=== PATIENT | female | born 1945 | race Caucasian/White ===

== ENCOUNTER 2016-10-09 11:18 | Emergency (ER) | payer OTHER, MEDICARE ==
[~2016-10-09] VITALS: Ht 154.9 cm; Wt 55.3 kg
[2016-10-09 11:21] VITALS: BP 118/83
[2016-10-09] MEDS ORDERED: LISINOPRIL10 M1 PO (11:48)
[2016-10-09] MEDS ORDERED: PRAVASTATIN SOD40 M2 PO (11:48)
[2016-10-09] MEDS ORDERED: CARDIZEM CD240 M1 PO (11:48)
[2016-10-09] MEDS ORDERED: MULTI-DAY VITA1 EACH PO (11:49)
--- NOTE | 2016-10-09 11:55 | RADIOLOGY REPORT ---
EXAMINATION: XR WRIST, LEFT CLINICAL INFORMATION: Pain and swelling status post fall COMPARISON: None TECHNIQUE: AP, lateral, and oblique views of the left wrist. FINDINGS: The bones are osteopenic. There is a distal radial metaphyseal fracture. No significant displacement. Alignment is maintained. No definite intra-articular extension. The carpal rows are appropriately aligned. Severe degenerative changes of the first carpometacarpal joint with joint space narrowing, sclerosis, and osteophyte formation. IMPRESSION: Essentially nondisplaced distal radial metaphyseal fracture.
--- NOTE | 2016-10-09 12:02 | ED HAND/WRIST INJURY COMPLAINT ---
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 Source: patient Exam Limitations: no limitations Vital Signs & Intake/Output Vital Signs & Intake/Output Vital Signs Date Time Temp Pulse Resp B/P B/P Pulse O2 O2 Flow FiO2 Mean Ox Delivery Rate 10/09 1121 97.2 93 18 118/83 100 Room Air Allergies Coded Allergies: Penicillins (Severe, RASH, ITCHY ON NECK 10/09/16) Reconcile Medications Diltiazem HCl (Cardizem Cd) 240 MG CAP.ER.24H 1 CAP PO DAILY HEART/BP ( Reported) Lisinopril 10 MG TABLET 0.5 TAB PO DAILY BP (Reported) Multivitamin (Multi-Day Vitamins) 1 EACH TABLET 1 TAB PO DAILY SUPPLEMENT ( Reported) Pravastatin Sodium 40 MG TABLET 1 TAB PO QPM CHOLESTEROL (Reported) Tylenol With Codeine (Tylenol With Codeine #3 Tablet) 300 MG-30 MG TABLET 1 TAB PO TIDP PRN pain Triage Note: 71 Y/O FEMALE C/O L WRIST PAIN S/P FALL OFF LADDER; STATES SHE WAS 2 STEPS UP A LADDER AND LOST FOOTING; FELL ONTO L WRIST. PT DENIES STRIKING HEAD OR ANY OTHER INJURY. SWELLING AND DEFORMITY NOTED. SPLINT PLACED. PT DECLINES OFFER OF MEDS IN TRIAGE ASKING FOR XRAY FIRST. ICE IN PLACE. Triage Nurses Notes Reviewed? yes Occurred: just prior to arrival Duration: hour(s): (2), constant, continues in ED, getting worse Timing: single episode today Injury Environment: home Severity: mild, moderate Severity Numbers: 7 Pain/Injury Location: Left: Wrist. Context: fall Method of Injury: fall No Modifying Factors: none Associated Symptoms: swelling LMP (ages 10-50): post menopausal : No Patient currently breastfeeds: No HPI: 71-year-old female with a past medical history of hypertension and hyperlipidemia presents complaining of pain in her left wrist after a fall. Patient states that she was coming down a ladder when she slipped on the last 2 steps and fell on her left outstretched wrist. She denies any head injury or loss of consciousness. She reports pain in left wrist that is worse with any type of movement. She took Motrin without any improvement. She rates the pain as an 8 out of 10. She denies any numbness, tingling, headaches, blood thinners , changes in vision, nausea, vomiting or any other associated symptoms. (SOPHIE TEAGUE PA-C) Past History Travel History Traveled to [place] past 21 day No Medical History Any Pertinent Medical History? 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 No (SOPHIE TEAGUE PA-C) Review of Systems Review of Systems Constitutional: Reports: no symptoms. EENTM: Reports: no symptoms. Respiratory: Reports: no symptoms. Cardiovascular: Reports: no symptoms. GI: Reports: no symptoms. Genitourinary: Reports: no symptoms. Musculoskeletal: Reports: see HPI, joint pain, joint swelling, muscle pain. Skin: Reports: no symptoms. Neurological/Psychological: Reports: no symptoms. Hematologic/Endocrine: Reports: no symptoms. Immunologic/Allergic: Reports: no symptoms. All Other Systems: Reviewed and Negative (SOPHIE TEAGUE PA-C) Physical Exam Physical Exam General Appearance: well developed/nourished, no apparent distress, alert, awake Head: atraumatic, normal appearance Eyes: Bilateral: normal appearance, PERRL, EOMI. Ears, Nose, Throat: normal pharynx, normal ENT inspection, hearing grossly normal Neck: normal inspection, supple, full range of motion Cardiovascular/Respiratory: normal breath sounds, normal peripheral pulses, regular rate/rhythm, no respiratory distress Shoulder Left: normal range of motion, normal inspection Shoulder Right: normal range of motion, normal inspection Elbow Left: normal range of motion, normal inspection Elbow Right: normal range of motion, normal inspection Forearm Left: normal range of motion, normal inspection Forearm Right: normal range of motion, normal inspection Wrist Left: swelling, tenderness, bone tenderness, pain, soft tissue tenderness, limited range of motion, swelling and pain with palpation of the radial aspect of the wrist. no snuff box tenderness. rom of the left wrist is reduced due to pain. neurovascular supply intact Wrist Right: normal range of motion, normal inspection Hand Left: normal inspection, normal range of motion Hand Right: normal inspection, normal range of motion Reflexes: 2+: bicep (R), bicep (L). Neurologic/Tendon: normal sensation, normal motor functions, normal tendon functions, responds to pain, no evidence tendon injury, no pulse deficit Skin: intact, normal color, warm/dry Lymphatic: no anterior cervical mili (ZAHIDA NORRIS,SOPHIE) Progress Differential Diagnosis: abscess, cellulitis, contusion, compartment syndrome, dislocation, fracture, sprain, tenosynovitis Plan of Care: Orders Procedure Date/time Status Durable Medical Equipment 10/09 1220 Active X-ray showing a nondisplaced radial fracture. Neurovascular supply is intact. She denies any other injuries. Patient will be placed in a thumb spica splint. She also was given Tylenol with Codeine to use for pain. Patient will be referred to orthopedics. Advised rest ice elevation and wearing the splint she sore throat. Tylenol with Codeine as needed for pain. Reviewed all results of today's visit with patient. Patient is nontoxic-appearing agrees with the plan. I discussed with the patient at length all of their results. I had an extensive conversation regarding need for close follow up with their primary care physician this week as well as return precautions. I answered all of their questions, they feel comfortable with the plan and follow-up care. I discussed with the patient/family the medications that they will receive. I gave them signs and symptoms that could indicate an adverse reaction. I have advised them to limit their activities until they can see how they respond to the medication. (ZAHIDA NORRIS,SOPHIE) Diagnostic Imaging: Viewed by Me: Radiology Read. Discussed w/RAD: Radiology Read. Radiology Impression: PATIENT: RACHAEL LAMAS PRESENT AGE: 71 PATIENT ACCOUNT NO: [id number] : 44 LOCATION: [facility] ORDERING PHYSICIAN: MAG DORANTES MD SERVICE DATE: 10/09/16 EXAM TYPE: RAD - XRY- WRIST COMPLETE-LEFT EXAMINATION: XR WRIST, LEFT CLINICAL INFORMATION: Pain and swelling status post fall COMPARISON: None TECHNIQUE: AP, lateral, and oblique views of the left wrist. FINDINGS: The bones are osteopenic. There is a distal radial metaphyseal fracture. No significant displacement. Alignment is maintained. No definite intra-articular extension. The carpal rows are appropriately aligned. Severe degenerative changes of the first carpometacarpal joint with joint space narrowing, sclerosis, and osteophyte formation. IMPRESSION: Essentially nondisplaced distal radial metaphyseal fracture. DICTATED BY: GILBERTO ALVES MD DATE/TIME DICTATED:10/09/161150 CRAFT RECRUITER:CELIA DATE/TIME TRANSCRIBED:10/09/161150 CONFIDENTIAL, DO NOT COPY WITHOUT APPROPRIATE AUTHORIZATION. <Electronically signed in Other Vendor System> SIGNED BY: LONG GANT,GILBERTO 10/09/16 1155 (SOPHIE TEAGUE PA-C) Departure Departure Disposition: HOME OR SELF CARE Condition: Stable Clinical Impression Primary Impression: Wrist fracture, left Qualifiers: Encounter type: initial encounter Fracture type: closed Qualified Code: S62.102A - Fracture of unspecified carpal bone, left wrist, initial encounter for closed fracture Referrals: SANDEE GANT,BRIA KUNZ MD,BELL Claros (PCP/Family) Additional Instructions: Rest, avoid heavy lifting, excessive physical activity. Wear splint and apply ice. Tylenol with Codeine can be used every 4-6 hours as needed for pain. This may cause drowsiness. Make a follow-up appointment with your primary care doctor and orthopedics as soon as possible. Monitor symptoms and return to the emergency department with any concerns. Departure Forms: Customer Survey General Discharge Information Prescriptions: Current Visit Scripts Tylenol With Codeine (Tylenol With Codeine #3 Tablet) 1 TAB PO TIDP PRN pain #12 TAB (SOPHIE TEAGUE PA-C) PA/SINGLE NEEDLE TUFTING MACHINE OPERATOR Co-Sign Statement Statement: ED Attending supervision documentation- x I saw and evaluated the patient. I have also reviewed all the pertinent lab results and diagnostic results. I agree with the findings and the plan of care as documented in the PA's/SINGLE NEEDLE TUFTING MACHINE OPERATOR's documentation. [] I have reviewed the ED Record and agree with the PA's/SINGLE NEEDLE TUFTING MACHINE OPERATOR's documentation. [] Additions or exceptions (if any) to the PAs/SINGLE NEEDLE TUFTING MACHINE OPERATOR's note and plan are summarized below: [] (JOSE E GANT,MAG) Procedures Splinting Location: left wrist Manual Alignment Performed: No Pre-Made Type: velcro Splint: thumb spica Splint Applied By: splint applied by other Pre-Proc Neuro Vasc Exam: normal Post-Proc Neuro Vasc Exam: normal Progress: Consent obtained. Patient was placed in a Velcro thumb spica splint. She tolerated well without any complications. (ZAHIDA NORRIS,SOPHIE)
[2016-10-09] MEDS ORDERED: TYLENOL WITH C1 EACH PO (12:32)
== END 2016-10-09 12:41 ==
LOC: ERH 11:18
DX: S59.292A Other physeal fracture of lower end of radius, left arm, initial encounter for closed fracture (principal); W11.XXXA Fall on and from ladder, initial encounter; Y93.89 Activity, other specified; Y92.9 Unspecified place or not applicable
CPT/HCPCS: 73110-LT